=== PATIENT | male | born 1940 | race Caucasian/White ===

== ENCOUNTER → 2019-08-05 | Outpatient (CLI) | payer BC ==
[~2019-08-05] MED LIST: ALBU90OI INH; ASCO500 PO; ASPI325 PO; ASPI81EC; ASPI81EC PO; ATOR10 PO; BENZ100A; BUDE10.22 IH; BUME1 PO; CARV25 PO; CETI10; CETI10 PO; CLOP75 PO; ESOM20; ESOM20 PO; FINA5 PO; LEVO750 PO; MAGOXI400 PO; MELO7.5 PO; METO50; METO50ER PO; OLME20 PO; POTCHL10ER PO; POTCIT5 PO; TERA1; TERA1 PO; TERA5 PO; TESTTP TOP; UBID10 PO; VITNEPH PO; WARF5; WARF5 PO; XARELTO20 MG PO
[2019-08-05 13:24] LABS: Influenza A Negative (NEGATIVE); Influenza B Negative (NEGATIVE)
== END | disposition home or self-care (01) ==
LOC: LAB SHORT 09:00 → LAB 09:00
PROVIDERS: Internal Medicine
DX: J20.9 Acute bronchitis, unspecified (principal)
CPT/HCPCS: 87804

== ENCOUNTER 2019-12-03 10:11 | Emergency (ER) | payer BC ==
[~2019-12-03] VITALS: Ht 185.4 cm; Wt 111.1 kg
[~2019-12-03 10:11] MED LIST changes: -BUDE10.22 IH; -BUME1 PO; -CARV25 PO; -FINA5 PO; -OLME20 PO; -POTCHL10ER PO; -XARELTO20 MG PO
[2019-12-03 10:45] LABS: BASOPHILS ABSOLUTE AUTO 0.05 K/mm3 (0.00-0.23); BASOPHILS PERCENT AUTO 1 % (0-2); EOSINOPHILS ABSOLUTE AUTO 0.19 K/mm3 (0.00-0.68); EOSINOPHILS PERCENT AUTO 3 % (0-6); Hemoglobin 10.7 g/dL (13.5-17.5); IMMATURE GRAN ABSOLUTE AUTO 0.03 K/mm3 (0.00-0.10); IMMATURE GRAN PERCENT AUTO 1 % (0-1); LYMPHOCYTES ABSOLUTE AUTO 0.72 K/mm3 (0.84-5.20); LYMPHOCYTES PERCENT AUTO 11 % (21-46); MONOCYTES ABSOLUTE AUTO 0.73 K/mm3 (0.16-1.47); MONOCYTES PERCENT AUTO 11 % (4-13); Mean Corpuscular HGB 27.4 pg (26.0-34.0); Mean Corpuscular HGB Conc 30.6 g/dL (31.5-36.5); Mean Corpuscular Volume 90 fL (80-100); Mean Platelet Volume 10.6 fL (9.1-12.4); NEUTROPHILS ABSOLUTE AUTO 4.73 K/mm3 (1.96-9.15); NEUTROPHILS PERCENT AUTO 73 % (41-73); Platelet Count 221 K/mm3 (150-400); RDW Coefficient Variation 14.2 % (11.7-14.2); RDW Standard Deviation 46.2 fL (35.1-46.3); White Blood Cell Count 6.45 K/mm3 (4.00-11.30)
[2019-12-03 10:58] LABS: Albumin, Blood 2.8 g/dL (3.4-5.0); Albumin/Globulin Ratio 0.8 (0.8-1.8); Bilirubin, Total 0.9 mg/dL (0.1-1.0); Bun/Creatinine Ratio 20.7 (12.0-20.0); Calcium, Blood 9.5 mg/dL (8.5-10.1); Creatinine, Blood 1.5 mg/dL (0.60-1.20); Globulin, Blood 3.7 g/dL (2.2-4.0); Potassium, Blood 4.7 mmol/L (3.5-5.5); Total Protein, Blood 6.5 g/dL (6.4-8.2)
[2019-12-03] MEDS ORDERED: BUDE6HFA INH (12:25)
[2019-12-03] MEDS ORDERED: ATOR20 PO (12:26)
[2019-12-03] MEDS ORDERED: CARVEDILOL ER40 MG PO (12:26)
[2019-12-03] MEDS ORDERED: OLME5TAB PO (12:27)
[2019-12-03] MEDS ORDERED: Terazosin HCl10 MG PO (12:27)
[2019-12-03] MEDS ORDERED: FINA5 PO (12:28)
[2019-12-03] MEDS ORDERED: ALLO300 PO (12:28)
[2019-12-03] MEDS ORDERED: OMEP20ER PO (12:28)
[2019-12-03] MEDS ORDERED: XARELTO20 MG PO (12:28)
[2019-12-03] MEDS ORDERED: CALQUENCE100 MG PO (12:29)
[2019-12-03] MEDS ORDERED: POTCHL10ER PO (12:38)
[2019-12-03] MEDS ORDERED: BUME1 PO (12:38)
[2019-12-03] MEDS ORDERED: ONDA4ODT SL (12:40)
[2019-12-03] MEDS ORDERED: OCUVITE BLUE L1 EACH PO (12:40)
== END 2019-12-03 13:47 | disposition home or self-care (01) ==
LOC: ER 10:11
PROVIDERS: Physician Assistant
DX: I95.9 Hypotension, unspecified (principal); N17.9 Acute kidney failure, unspecified; E86.0 Dehydration; I10 Essential (primary) hypertension; I48.91 Unspecified atrial fibrillation; I25.2 Old myocardial infarction; I25.10 Atherosclerotic heart disease of native coronary artery without angina pectoris; E78.5 Hyperlipidemia, unspecified; Z79.899 Other long term (current) drug therapy; Z87.01 Personal history of pneumonia (recurrent); Z87.891 Personal history of nicotine dependence
CPT/HCPCS: 36415; 71045; 80053; 83735; 83880; 84484; 85025; 93005; 93010; 96361; 96374; 99284-25; J2405; J7030

== ENCOUNTER 2019-12-24 14:59 | Day surgery (SDC) | payer BC ==
[~2019-12-24 14:59] MED LIST changes: +ALLO300 PO; +ATOR20 PO; +BUDE6HFA INH; +BUME1 PO; +CALQUENCE100 MG PO; +CARVEDILOL ER40 MG PO; +FINA5 PO; +OCUVITE BLUE L1 EACH PO; +OLME5TAB PO; +OMEP20ER PO; +ONDA4ODT SL; +POTCHL10ER PO; +Terazosin HCl10 MG PO; +XARELTO20 MG PO
== END 2019-12-24 22:40 | disposition home or self-care (01) ==
LOC: US 14:59
DX: R18.8 Other ascites (principal); C83.18 Mantle cell lymphoma, lymph nodes of multiple sites
CPT/HCPCS: 49083

== ENCOUNTER 2020-01-15 09:37 | Day surgery (SDC) | payer BC | END 2020-01-15 22:47 | disposition home or self-care (01) | LOC: US 09:37 | DX: R18.8 Other ascites (principal) | CPT/HCPCS: 49083 ==